=== PATIENT | male | born 1970 | race Caucasian/White ===

== ENCOUNTER 2017-11-30 17:38 | Day surgery (SDC) | payer OTHER ==
[~2017-11-30 17:38] MED LIST: PROPOFOL 200 MG/20 ML VIAL ONE
[2017-11-30] MEDS ORDERED: Fentanyl 100 MCG/2 ML VIAL ONE (17:51)
[2017-11-30] MEDS ORDERED: Midazolam HCl 2 mg/2 ml Vial ONE ×2 (17:51→18:36)
[2017-11-30] MEDS ORDERED: Propofol 500 MG/50 ML VIAL ONE (18:37)
--- NOTE | 2017-12-01 01:18 | OP ---
DATE OF PROCEDURE: 11/30/2017 PREOPERATIVE DIAGNOSIS: Eyelid sutures, both lower eyelids. POSTOPERATIVE DIAGNOSIS: Eyelid sutures, both lower eyelids. PROCEDURE: Removal of eyelid sutures. SURGEON: Chang Whitney M.D. ANESTHESIA: TIVA. PROCEDURE IN DETAIL: The patient was identified in preoperative holding area. Appropriate consent f or planned surgical procedure, both eyes was obtained. The patient was transported to the operative suite. Appropriate cardiopulmonary monitoring was established. TIVA anesthesia was obtained using a propofol pump. Eye was prepped and draped for extraocular surgery. Sutures were removed under magn ification until all sutures were removed. The patient was awakened, taken to the postoperative recov angel unit in good condition, suffered no immediate perioperative complications. DISCHARGE INSTRUCTIONS: The patient was instructed to keep patch and shield on, apply antibiotic oin tment to lids as needed and follow up with Dr. Whitney.
== END 2017-11-30 19:55 | disposition home or self-care (01) ==
LOC: SDC 17:38
PROVIDERS: ATTEND Ophthalmology Retina Specialist
PROC: 8E09XY8 Suture Removal from Head and Neck Region (ICD-10-PCS; principal; 2017-11-30)
DX: Z48.02 Encounter for removal of sutures (principal); Z88.0 Allergy status to penicillin
CPT/HCPCS: J2250; J2704; J3010

== ENCOUNTER 2022-02-28 07:31 | Day surgery (SDC) | payer BC ==
[2022-02-26 16:32] VITALS: BMI 33.0
[2022-02-28] MEDS ORDERED: Ondansetron PF 4 MG/2 ML Vial ONE (09:15)
[2022-02-28] MEDS ORDERED: PROPOFOL 200 MG/20 ML VIAL ONE (09:15)
[2022-02-28 10:48] LABS: #Eosinphils 0.2 thou/uL (0.0-0.7); #Lymphocytes 1.5 thou/uL (1.20-3.40); #Monocytes 0.4 thou/uL (0.11-0.59); #Neutrophils 2.6 thou/uL (1.40-6.50); %Basophils 0.6 % (0.0-1.0); %Eosinophils 3.5 % (0.0-10.0); %Lymphocytes 30.7 % (21.0-51.0); %Monocytes 9.3 % (0.0-10.0); %Neutrophils 55.9 % (42.0-75.0); Hemoglobin 14.2 g/dL (14.0-18.0); Mean Corpuscular HGB CONC 33.1 g/dL (32.0-36.0); Mean Corpuscular Hemoglobin 29.7 pg (27.0-31.0); Mean Corpuscular Volume 89.6 fL (78.0-98.0); Mean Platelet Volume 7.8 fL (7.4-10.4); Platelet Count 222 thou/uL (130-400); RBC Distribution Width 11.8 % (11.5-14.5); White Blood Cell (WBC) Count 4.7 thou/uL (4.8-10.8)
[2022-02-28 11:34] LABS: ALT (SGPT) 19 U/L (8-55); AST (SGOT) 18 U/L (5-34); Alkaline Phosphatase 56 U/L (40-110); Bilirubin, Direct 0.3 mg/dL (0.1-0.3); Bilirubin, Total 0.7 mg/dL (0.2-1.2); Lipase 16 U/L (8-78); Protein, Total 6.6 g/dL (6.0-8.3)
== END 2022-02-28 11:03 | disposition home or self-care (01) ==
LOC: SDC 07:31
PROVIDERS: ATTEND Internal Medicine Gastroenterology
PROC: 0DBM8ZX Excision of Descending Colon, Via Natural or Artificial Opening Endoscopic, Diagnostic (ICD-10-PCS; principal; 2022-02-28)
PROC: 0DB68ZX Excision of Stomach, Via Natural or Artificial Opening Endoscopic, Diagnostic (ICD-10-PCS; principal; 2022-02-28)
DX: Z12.11 Encounter for screening for malignant neoplasm of colon (principal); K63.5 Polyp of colon; K29.50 Unspecified chronic gastritis without bleeding; K57.30 Diverticulosis of large intestine without perforation or abscess without bleeding; K21.9 Gastro-esophageal reflux disease without esophagitis; M19.90 Unspecified osteoarthritis, unspecified site; I10 Essential (primary) hypertension; Z79.899 Other long term (current) drug therapy; Z88.0 Allergy status to penicillin; Z20.822 Contact with and (suspected) exposure to COVID-19
CPT/HCPCS: 76705; 80076; 83690; 85025; 87811; 88305; 88342; J2405; J2704

== ENCOUNTER 2023-04-09 12:34 | Outpatient (CLI) | payer BC ==
[2023-04-09 13:36] LABS: #Basophils 0.1 10x3/uL (0.0-0.2); #Eosinphils 0.3 10x3/uL (0.0-0.5); #Monocytes 0.5 10x3/uL (0.0-1.1); #Neutrophils 3.9 10x3/uL (1.5-8.4); %Basophils 1.1 % (0.0-2.0); %Eosinophils 4.4 % (0.0-6.0); %Lymphocytes 30.8 % (18.0-47.0); %Monocytes 7.3 % (0.0-10.0); Hematocrit 43.3 % (38.8-50.0); Hemoglobin 14.8 g/dL (13.5-17.5); Mean Corpuscular HGB CONC 34.2 g/dL (32.0-36.0); Mean Corpuscular Hemoglobin 29.5 pg (27.0-33.0); Mean Corpuscular Volume 86.4 fl (81.2-95.1); Platelet Count 259 10x3/uL (150-450); RBC Distribution Width 12.6 % (11.5-14.5); Red Blood Cell (RBC) Count 5.01 10x6/uL (4.32-5.72)
[2023-04-09 13:49] LABS: Anion Gap 12 mmol/L (10-20); BUN (Urea Nitrogen) 14 mg/dL (8.4-25.7); Calc. Creatinine Clearance 0 mL/min (70-130); Calcium 8.9 mg/dL (7.8-10.44); Carbon Dioxide 26 mmol/L (22-29); Chloride 105 mmol/L (98-107); Estimated GFR 95; Glucose 82 mg/dL (70-105); Sodium 139 mmol/L (136-145)
== END 2023-04-09 12:35 | disposition home or self-care (01) ==
LOC: LABBT 12:34
PROVIDERS: ATTEND Surgery
DX: Z01.818 Encounter for other preprocedural examination (principal); K40.90 Unilateral inguinal hernia, without obstruction or gangrene, not specified as recurrent
CPT/HCPCS: 80048; 85025; 93005; 93010; G0103

== ENCOUNTER 2023-04-15 11:37 | Day surgery (SDC) | payer BC ==
[2023-04-09 13:07] VITALS: BMI 29.4
[2023-04-15] MEDS ORDERED: fentaNYL PF 100 MCG/2 ML SYRINGE ONE (12:46)
[2023-04-15] MEDS ORDERED: Bupivacaine 0.25% HCL 30 ML VIAL ONE (12:58)
[2023-04-15] MEDS ORDERED: EPINEPHrine 1 MG/ML AMP ONE (12:58)
[2023-04-15] MEDS ORDERED: PROPOFOL 20 ML ONE (13:04)
[2023-04-15] MEDS ORDERED: ePHEDrine Sulfate 50 MG/10 ML VIAL ONE (14:07)
[2023-04-15] MEDS ORDERED: NEOSTIGMINE 3 MG/3 ML SYR 3 MG/3 ML SYRINGE ONE (14:07)
[2023-04-15] MEDS ORDERED: Ketorolac Tromethamine 30 MG/ML VIAL ONE (14:07)
[2023-04-15] MEDS ORDERED: Rocuronium Bromide 10 MG/ML (10ML VIAL) ONE (14:07)
[2023-04-15] MEDS ORDERED: PROPOFOL 200 MG/20 ML VIAL ONE (14:07)
[2023-04-15] MEDS ORDERED: Dexamethasone 20 MG/5 ML VIAL ONE (14:07)
[2023-04-15] MEDS ORDERED: Ondansetron PF 4 MG/2 ML Vial ONE (14:07)
[2023-04-15] MEDS ORDERED: Glycopyrrolate 0.2 MG/ML 5 ML SYRINGE ONE (14:07)
[2023-04-15] MEDS ORDERED: Midazolam HCl 2 mg/2 ml Vial ONE (14:09)
[2023-04-15] MEDS ORDERED: LevoFLOXacin 500 mg/D5W 100 ML BAG ONE (14:23)
[2023-04-15] MEDS ORDERED: fentaNYL 50 mcg/mL 1 mL Vial ONE (15:57)
[2023-04-15] MEDS ORDERED: traMADol HCl 50 MG TAB ONE (16:37)
[2023-04-15] MEDS ORDERED: CeleCOXIB 100 MG CAP ONE (17:24)
[2023-04-15] MEDS ORDERED: Acetaminophen 500 MG TAB ONE (17:24)
== END 2023-04-15 17:50 | disposition home or self-care (01) ==
LOC: SDC 11:37
PROVIDERS: ATTEND Surgery
PROC: 0YUA4JZ Supplement Bilateral Inguinal Region with Synthetic Substitute, Percutaneous Endoscopic Approach (ICD-10-PCS; principal; 2023-04-15)
DX: K40.20 Bilateral inguinal hernia, without obstruction or gangrene, not specified as recurrent (principal); Z88.0 Allergy status to penicillin
CPT/HCPCS: A4314; C1781; J0171; J1100; J1885; J1956; J2250; J2405; J2704; J3010; S0020